=== PATIENT | male | born 1965 | race Caucasian/White ===

== ENCOUNTER → 2017-04-04 14:52 | Outpatient (CLI) | payer OTHER, SELFPAY ==
[2017-04-04 15:17] LABS: Absolute Lymphocyte Count 1.97 X10^3/ul (0.83-4.51); Absolute Neutrophil Count 4.5 X10^3/uL (2.0-7.7); Basophil# 0.01 X10^3/uL; Basophil% 0.1 % (0-1); Eosinophil# 0.03 X10^3/uL; Eosinophils% 0.4 % (0-5); Hematocrit 48.1 % (40-54); Hemoglobin 16.8 g/dl (13.0-16.5); Lymphocyte # 1.97 X10^3/ul (4.0); Lymphocyte % 27.4 % (19-41); Mean Corp Hgb Conc 34.9 g/gl (32-36); Mean Corpuscular Hgb 31.7 pg (27.0-32.0); Mean Corpuscular Volume 90.8 fL (80-94); Mean Platelet Vol. 10.4 fl (6.2-12.0); Monocyte# 0.65 X10^3/uL; Neutrophil # 4.52 X10^3/uL (2.7-7.7); Platelet Count 259 K/mm3 (150-450); RBC Distribution Width CV 12.5 % (11.6-14.6); RBC Distribution Width SD 41.3 fl (35.1-43.9); White Blood Count 7.2 K/mm3 (4.4-11.0)
[2017-04-04 15:42] LABS: POSITIVE COUNT NO; POSITIVE DIFFERENTIAL NO; POSITIVE MORPHOLOGY NO
[2017-04-04 15:49] LABS: ALB/GLOB Ratio 1.1 RATIO (0.9-2.4); AST(SGOT) 36 U/L (15-37); Alanine Aminotransfer ALT/SGPT 71 U/L (16-61); Albumin, Serum 4.1 g/dL (3.2-5.0); Alkaline Phosphatase 67 U/L (45-117); Anion Gap 7 (5-15); BUN 15 mg/dL (7-18); BUN/Creat Ratio 15.3 RATIO (10-20); Chloride 104 mmol/L (98-107); Creatinine, Serum 0.98 mg/dL (0.70-1.30); EST Glomerular Filtration Rate 86 mL/min (>60); Est Glom Filt Rate - Afr Amer 104 mL/min (>60); Globulin 3.6 g/dL (2.2-4.2); Glucose 95 mg/dL (74-106); Protein, Total 7.7 g/dL (6.4-8.2); Sodium Level 139 mmol/L (136-145)
== END ==
PROVIDERS: Family Provider Internal Medicine; PCP Internal Medicine; Visit Provider Internal Medicine
DX: E83.52 Hypercalcemia (principal); I10 Essential (primary) hypertension
CPT/HCPCS: 36415; 80053; 85025

== ENCOUNTER → 2017-04-20 09:18 | Outpatient (CLI) | payer OTHER, SELFPAY ==
[2017-04-20 10:54] LABS: BUN 13 mg/dL (7-18); Creatinine, Serum 0.98 mg/dL (0.70-1.30); Glucose 107 mg/dL (74-106)
[2017-04-20 10:55] LABS: Anion Gap 7 (5-15); BUN/Creat Ratio 13.2 RATIO (10-20); Calcium,Total 9.4 mg/dL (8.5-10.1); Chloride 104 mmol/L (98-107); EST Glomerular Filtration Rate 86 mL/min (>60); Est Glom Filt Rate - Afr Amer 104 mL/min (>60); Magnesium 2.3 mg/dL (1.6-2.6); Sodium Level 140 mmol/L (136-145)
== END ==
PROVIDERS: Family Provider Internal Medicine; PCP Internal Medicine; Visit Provider Internal Medicine
DX: I10 Essential (primary) hypertension (principal); E87.6 Hypokalemia; E78.2 Mixed hyperlipidemia; D72.819 Decreased white blood cell count, unspecified; E55.9 Vitamin D deficiency, unspecified
CPT/HCPCS: 36415; 80048; 83735

== ENCOUNTER → 2017-07-27 08:13 | Outpatient (CLI) | payer OTHER, SELFPAY ==
[2017-07-27 08:29] LABS: Bacteria 0 SEEN /hpf (None Seen); Mucous, Urine 0 SEEN /hpf (<or=2+); Red Blood Cells-Urine 0 SEEN /hpf (0-5); Squamous Epithelial Cells - UA 0 SEEN /hpf (0-5); White Blood Cells 0 SEEN /hpf (0-5)
[2017-07-27 08:45] LABS: Color, Urine Straw (Yellow); Glucose, Dipstick Normal (Normal); Ketone-Dipstick Negative (Negative); Leukocyte Esterase-Dipstick Negative /ul (Negative); Nitrite-Dipstick Negative (Negative); Occult Blood-Urine Negative /ul (Negative); Protein-Dipstick Negative (Negative); Urine Bilirubin Dipstick Negative (Negative); Urine Clarity Clear (Clear); Urine Urobilinogen Normal (Normal)
[2017-07-27 09:09] LABS: Protein, Urine (Random) < 6.0 mg/dL (<11.9)
[2017-07-27 09:11] LABS: Absolute Lymphocyte Count 1.86 X10^3/ul (0.83-4.51); Absolute Neutrophil Count 2.4 X10^3/uL (2.0-7.7); Basophil# 0.01 X10^3/uL; Basophil% 0.2 % (0-1); Eosinophil# 0.04 X10^3/uL; Eosinophils% 0.8 % (0-5); Hematocrit 47.1 % (40-54); Lymphocyte # 1.86 X10^3/ul (4.0); Lymphocyte % 38.8 % (19-41); Mean Corp Hgb Conc 36.1 g/gl (32-36); Mean Corpuscular Hgb 32.4 pg (27.0-32.0); Mean Corpuscular Volume 89.9 fL (80-94); Mean Platelet Vol. 10.8 fl (6.2-12.0); Monocyte# 0.48 X10^3/uL; Neutrophil % 50.2 % (47-70); Platelet Count 266 K/mm3 (150-450); RBC Distribution Width CV 12.6 % (11.6-14.6); RBC Distribution Width SD 41.5 fl (35.1-43.9); Red Blood Count 5.24 M/mm3 (4.6-6.2); White Blood Count 4.8 K/mm3 (4.4-11.0)
[2017-07-27 09:16] LABS: POSITIVE COUNT NO; POSITIVE DIFFERENTIAL NO; POSITIVE MORPHOLOGY NO
[2017-07-27 09:34] LABS: ALB/GLOB Ratio 1.1 RATIO (0.9-2.4); AST(SGOT) 28 U/L (15-37); Alanine Aminotransfer ALT/SGPT 48 U/L (16-61); Albumin, Serum 3.9 g/dL (3.2-5.0); Alkaline Phosphatase 66 U/L (45-117); Anion Gap 8 (5-15); BUN 12 mg/dL (7-18); BUN/Creat Ratio 12.6 RATIO (10-20); Chloride 106 mmol/L (98-107); Cholesterol 190 mg/dL (200); Creatinine, Serum 0.95 mg/dL (0.70-1.30); EST Glomerular Filtration Rate 89 mL/min (>60); Est Glom Filt Rate - Afr Amer 108 mL/min (>60); Globulin 3.5 g/dL (2.2-4.2); Glucose 97 mg/dL (74-106); High Density Lipoprotein 29 mg/dL; Magnesium 2.1 mg/dL (1.6-2.6); Phosphorus 2.4 mg/dL (2.5-4.9); Potassium 4.3 mmol/L (3.5-5.1); Protein, Total 7.4 g/dL (6.4-8.2); Sodium Level 140 mmol/L (136-145); Triglycerides 264 mg/dL; Very Low Density Lipoprotein 53 mg/dL (5-40)
[2017-07-28 08:22] LABS: PTHIN 42.7 pg/mL (18.4-80.1)
[2017-07-28 08:25] LABS: Vitamin D,25 Hydroxy 34.2 ng/mL (29.95-100.01)
[2017-07-29 12:07] LABS: CHOLESTEROL TOTAL 203 mg/dL (100-199); HDL-C 30 mg/dL (>39); HDL-P TOTAL 26.3 umol/L (>=30.5); SMALL LDL-P 1078 nmol/L (<=527); TRIGLYCERIDES 265 mg/dL (0-149)
[2017-07-30 10:26] LABS: LDL-C 120 mg/dL (0-99); LDL-P 1575 nmol/L (<1000); LP-IR SCORE ** 74 (<=45)
== END ==
PROVIDERS: Family Provider Internal Medicine; PCP Internal Medicine; Visit Provider Internal Medicine
DX: E55.9 Vitamin D deficiency, unspecified (principal); E78.2 Mixed hyperlipidemia; D72.819 Decreased white blood cell count, unspecified; E87.6 Hypokalemia; I10 Essential (primary) hypertension; E21.0 Primary hyperparathyroidism
CPT/HCPCS: 36415; 80053; 80061; 81001; 82306; 82570; 83704; 83735; 83970; 84100; 84156; 85025

== ENCOUNTER → 2018-01-03 08:22 | Outpatient (CLI) | payer OTHER, SELFPAY ==
[2018-01-03 10:01] LABS: AST(SGOT) 24 U/L (15-37); Alanine Aminotransfer ALT/SGPT 45 U/L (16-61); Albumin, Serum 3.9 g/dL (3.2-5.0); Alkaline Phosphatase 65 U/L (45-117); Bilirubin, Direct 0.19 mg/dL (0.00-0.30); Cholesterol 174 mg/dL (200); Globulin 3.6 g/dL (2.2-4.2); High Density Lipoprotein 33 mg/dL; Protein, Total 7.5 g/dL (6.4-8.2); Triglycerides 219 mg/dL; Very Low Density Lipoprotein 44 mg/dL (5-40)
[2018-01-06 12:06] LABS: CHOLESTEROL TOTAL 191 mg/dL (100-199); HDL-C 35 mg/dL (>39); HDL-P TOTAL 30.3 umol/L (>=30.5); SMALL LDL-P 709 nmol/L (<=527); TRIGLYCERIDES 216 mg/dL (0-149)
[2018-01-08 15:51] LABS: LDL SIZE 20.3 nm (>20.5); LDL-C 113 mg/dL (0-99); LDL-P 1276 nmol/L (<1000); LP-IR SCORE ** 89 (<=45)
== END ==
PROVIDERS: Family Provider Internal Medicine; PCP Internal Medicine; Referring Provider Internal Medicine; Visit Provider Internal Medicine
DX: E78.2 Mixed hyperlipidemia (principal)
CPT/HCPCS: 36415; 80061; 80076; 83704

== ENCOUNTER → 2018-07-20 08:36 | Outpatient (CLI) | payer OTHER, SELFPAY ==
[2018-07-20 08:43] LABS: Bacteria 0 SEEN /hpf (None Seen); Mucous, Urine 0 SEEN /hpf (<or=2+); Red Blood Cells-Urine 0 SEEN /hpf (0-5); Squamous Epithelial Cells - UA 0 SEEN /hpf (0-5); White Blood Cells 0 SEEN /hpf (0-5)
[2018-07-20 08:57] LABS: Absolute Lymphocyte Count 2.41 X10^3/ul (0.83-4.51); Absolute Neutrophil Count 3.1 X10^3/uL (2.0-7.7); Basophil# 0.02 X10^3/uL; Basophil% 0.3 % (0-1); Eosinophil# 0.09 X10^3/uL; Eosinophils% 1.5 % (0-5); Hematocrit 47.3 % (40-54); Lymphocyte # 2.41 X10^3/ul (4.0); Lymphocyte % 39.6 % (19-41); Mean Corp Hgb Conc 35.9 g/gl (32-36); Mean Corpuscular Hgb 32.3 pg (27.0-32.0); Mean Corpuscular Volume 89.8 fL (80-94); Mean Platelet Vol. 9.8 fl (6.2-12.0); Monocyte# 0.52 X10^3/uL; Monocyte% 8.5 % (0-10); Neutrophil # 3.05 X10^3/uL (2.7-7.7); Neutrophil % 50.1 % (47-70); POSITIVE COUNT NO; POSITIVE DIFFERENTIAL NO; POSITIVE MORPHOLOGY NO; Platelet Count 245 K/mm3 (150-450); RBC Distribution Width CV 12.9 % (11.6-14.6); RBC Distribution Width SD 42.2 fl (35.1-43.9); Red Blood Count 5.27 M/mm3 (4.6-6.2); White Blood Count 6.1 K/mm3 (4.4-11.0)
[2018-07-20 09:27] LABS: Hemoglobin A1c 5.5 % (4.2-6.3)
[2018-07-20 09:44] LABS: Vitamin D,25 Hydroxy 46.8 ng/mL (29.95-100.01)
[2018-07-20 09:46] LABS: AST(SGOT) 25 U/L (15-37); Alanine Aminotransfer ALT/SGPT 31 U/L (16-61); Albumin, Serum 3.6 g/dL (3.2-5.0); Alkaline Phosphatase 56 U/L (45-117); Anion Gap 4 (5-15); BUN 11 mg/dL (7-18); Calcium,Total 8.7 mg/dL (8.5-10.1); Chloride 108 mmol/L (98-107); EST Glomerular Filtration Rate 84 mL/min (>60); Est Glom Filt Rate - Afr Amer 101 mL/min (>60); Globulin 3.5 g/dL (2.2-4.2); Glucose 100 mg/dL (74-106); Potassium 4.1 mmol/L (3.5-5.1); Protein, Total 7.1 g/dL (6.4-8.2); Sodium Level 138 mmol/L (136-145); Thyroid Stim Hormone (TSH) 2.13 uIU/mL (0.358-3.74)
[2018-07-20 10:19] LABS: Microalbumin,Random Urine 5.8 mg/L (NO RANGE EST.); Microalbumin:Creatinine Ratio 8.3 mg/g CRE (<30 mg/g CRE)
[2018-07-20 10:36] LABS: Color, Urine Yellow (Yellow); Glucose, Dipstick Normal (Normal); Ketone-Dipstick Negative (Negative); Leukocyte Esterase-Dipstick Negative /ul (Negative); Nitrite-Dipstick Negative (Negative); Occult Blood-Urine Negative /ul (Negative); Protein-Dipstick Negative (Negative); Urine Bilirubin Dipstick Negative (Negative); Urine Clarity Clear (Clear); Urine Urobilinogen Normal (Normal); Urine pH 6.5 (5.0 - 8.0)
[2018-07-21 16:07] LABS: CHOLESTEROL TOTAL 210 mg/dL (100-199); HDL-C 28 mg/dL (>39); SMALL LDL-P 1843 nmol/L (<=527); TRIGLYCERIDES 372 mg/dL (0-149)
[2018-07-23 08:49] LABS: INSULIN RESISTANCE SCORE 79 (<=45); LDL SIZE 19.4 nm (>20.5); LDL-C 108 mg/dL (0-99); LDL-P 2076 nmol/L (<1000)
== END ==
PROVIDERS: Family Provider Internal Medicine; PCP Internal Medicine; Referring Provider Internal Medicine; Visit Provider Internal Medicine
DX: I10 Essential (primary) hypertension (principal); E78.2 Mixed hyperlipidemia; E88.81 Metabolic syndrome and other insulin resistance; E55.9 Vitamin D deficiency, unspecified
CPT/HCPCS: 36415; 80053; 80061; 81001; 82043; 82306; 82570; 83036; 83704; 84443; 85025

== ENCOUNTER → 2018-09-06 13:46 | Outpatient (CLI) | payer OTHER, SELFPAY ==
--- NOTE | 2018-09-06 13:51 | RAD_ITS ---
STUDY: X-RAY - RIGHT FOOT CLINICAL: Male, 52 years old. Fifth metatarsal pain TECHNIQUE: 3 view(s) of the foot. COMPARISON: None. FINDINGS: Normal talus, calcaneus, and tarsal bones. Normal visualized subtalar, talonavicular, calcaneocuboid, tarsal and tarsometatarsal articulations. Normal metatarsi. Normal metatarsophalangeal joint of the great toe. Normal tibial and fibular sesamoid bones. Normal interphalangeal joint of the great toe. Normal phalanges of the great toe. Normal second through fifth metatarsophalangeal joints. Normal interphalangeal joints and phalanges of the lesser toes. The soft tissue structures are unremarkable. RAD/Foot min 3 Views IMPRESSION: Normal x-ray examination of the foot. Electronically Signed: Mj Bradley MD at 14:54 EDT , Service support ,
== END ==
PROVIDERS: Family Provider Internal Medicine; PCP Internal Medicine; Referring Provider Internal Medicine; Visit Provider Internal Medicine
DX: M79.671 Pain in right foot (principal)
CPT/HCPCS: 73630

== ENCOUNTER → 2019-01-28 10:10 | Outpatient (CLI) | payer OTHER, SELFPAY ==
[2019-01-28 10:15] LABS: Bacteria 0 SEEN /hpf (None Seen); Mucous, Urine 0 SEEN /hpf (<or=2+); Red Blood Cells-Urine 0 SEEN /hpf (0-5); Squamous Epithelial Cells - UA 0 SEEN /hpf (0-5); White Blood Cells 0 SEEN /hpf (0-5)
[2019-01-28 11:16] LABS: Absolute Lymphocyte Count 2.09 X10^3/uL (0.83-4.51); Absolute Neutrophil Count 3.1 X10^3/uL (2.0-7.7); Basophil# 0.04 X10^3/uL; Basophil% 0.7 % (0-1); Color, Urine Straw (Yellow); Eosinophil# 0.09 X10^3/uL; Eosinophils% 1.5 % (0-5); Glucose, Dipstick Normal (Normal); Hematocrit 47.8 % (40-54); Hemoglobin 16.7 g/dL (13.0-16.5); Ketone-Dipstick Negative (Negative); Leukocyte Esterase-Dipstick Negative /ul (Negative); Lymphocyte # 2.09 X10^3/ul (4.0); Lymphocyte % 34.5 % (19-41); Mean Corp Hgb Conc 34.9 g/dL (32-36); Mean Corpuscular Volume 91.6 fL (80-94); Mean Platelet Vol. 10.4 fl (6.2-12.0); Monocyte# 0.66 X10^3/uL; Monocyte% 10.9 % (0-10); NRBC Flagged by Analyzer 0 % (0-5); Neutrophil # 3.14 X10^3/uL (2.7-7.7); Neutrophil % 51.9 % (47-70); Nitrite-Dipstick Negative (Negative); Occult Blood-Urine Negative /ul (Negative); Platelet Count 292 K/mm3 (150-450); Protein-Dipstick Negative (Negative); RBC Distribution Width CV 12.2 % (11.6-14.6); Red Blood Count 5.22 M/mm3 (4.6-6.2); Specific Gravity, Urine 1.005 (1.002-1.030); Urine Bilirubin Dipstick Negative (Negative); Urine Clarity Clear (Clear); Urine Urobilinogen Normal (Normal); White Blood Count 6.1 K/mm3 (4.4-11.0)
[2019-01-28 11:30] LABS: Microalbumin,Random Urine < 5.0 mg/L (NO RANGE EST.)
[2019-01-28 12:11] LABS: ALB/GLOB Ratio 1.1 RATIO (0.9-2.4); AST(SGOT) 19 U/L (15-37); Alanine Aminotransfer ALT/SGPT 32 U/L (16-61); Albumin, Serum 3.7 g/dL (3.2-5.0); Alkaline Phosphatase 51 U/L (45-117); Anion Gap 4 (5-15); BUN 9 mg/dL (7-18); BUN/Creat Ratio 9.1 RATIO (10-20); Calcium,Total 8.8 mg/dL (8.5-10.1); Chloride 105 mmol/L (98-107); Creatinine, Serum 0.99 mg/dL (0.70-1.30); EST Glomerular Filtration Rate 84 mL/min (>60); Est Glom Filt Rate - Afr Amer 102 mL/min (>60); Globulin 3.4 g/dL (2.2-4.2); Glucose 89 mg/dL (74-106); Potassium 3.6 mmol/L (3.5-5.1); Protein, Total 7.1 g/dL (6.4-8.2); Sodium Level 140 mmol/L (136-145); Thyroid Stim Hormone (TSH) 1.87 uIU/mL (0.358-3.74)
[2019-01-30 16:23] LABS: CHOLESTEROL TOTAL 187 mg/dL (100-199); HDL-C 27 mg/dL (>39); HDL-P TOTAL 25.5 umol/L (>=30.5); SMALL LDL-P 1361 nmol/L (<=527); TRIGLYCERIDES 306 mg/dL (0-149)
[2019-01-30 16:52] LABS: INSULIN RESISTANCE SCORE 91 (<=45); LDL SIZE 19.6 nm (>20.5); LDL-C 99 mg/dL (0-99); LDL-P 1633 nmol/L (<1000)
== END ==
PROVIDERS: Family Provider Internal Medicine; PCP Internal Medicine; Referring Provider Internal Medicine; Visit Provider Internal Medicine
DX: E78.2 Mixed hyperlipidemia (principal); I10 Essential (primary) hypertension
CPT/HCPCS: 36415; 80053; 80061; 81001; 82043; 82570; 83704; 84443; 85025

== ENCOUNTER 2019-04-23 07:01 | Emergency (ER) | payer OTHER, SELFPAY ==
[2019-04-23 07:02] VITALS: BP 161/112; PULSE 90; RESP 16; TEMP 36.9; O2SAT 97; BMI 28.0
--- NOTE | 2019-04-23 07:12 | CT_ITS ---
STUDY: CT ABDOMEN AND PELVIS WITHOUT CONTRAST REASON FOR EXAM: Male, 53 years old patient with right-sided flank pain. RADIATION DOSAGE (If Supplied By Facility): CTDIvol = ( 7.09 ) mGy, DLP = ( 368.34 ) mGycm TECHNIQUE: Transaxial images were obtained from the dome of the diaphragm to the symphysis pubis without oral contrast, and without intravenous contrast. Sagittal and coronal images were reconstructed. Individualized dose optimization techniques were used for this CT. COMPARISON: CT abdomen and pelvis dated October 29 2014. FINDINGS: The visualized lung bases are unremarkable. The visualized portions of the heart are within normal limits. Normal liver. Normal gallbladder and extrahepatic biliary system. Normal spleen. Normal pancreas. Normal bilateral adrenal glands. There is mild right-sided hydronephrosis and hydroureter secondary to 2 distal ureteral calculi with the largest measuring 4 mm in greatest dimension. Normal left kidney. Normal visualized stomach. There is no evidence for dilated bowel, ascites or pneumoperitoneum. The small bowel has a grossly normal appearance. The descending colon is not distended. It the transverse colon appears to have some abnormal thickening of the christine which may be the result of a previous inflammation. Stool is visible throughout the right colon. There are scattered colonic diverticula. There is non-visualization of the appendix. Normal abdominal aorta. There is venous distention of the inferior vena cava (IVC). Normal retroperitoneum. Urinary bladder is not distended. There are prostatic calcifications. There is a small umbilical hernia containing fat. Normal osseous structures. CT/Abdomen/Pelvis without Cont IMPRESSION: 1. Moderate right-sided hydronephrosis and hydroureter secondary to distal ureteral calculi. 2. Colonic diverticulosis. Electronically Signed: Stacia Dover MD at 8:04 EDT , Service support ,
--- NOTE | 2019-04-23 07:12 | ED.VIS.GEN ---
History of Present Illness Chief Complaint: Flank Pain Informant: Patient Onset: Today Narrative: Patient states that approximately 0400 hours today he was awoken from his sleep with a right flank aching. It progressed to severe pain wrapping anteriorly to discomfort including his penis. He did develop some diarrhea as well as significant nausea. He has not been ill recently. He has a history of hyperparathyroidism. He has had a parathyroidectomy. He states that despite that and medicationS he remains with hypercalcemia. Recent bone study showed osteoporosis. He has a history of kidney stones though it has been several years. He last had surgery with Dr. Grover. Past Medical History - Allergies and Home Meds Allergies/Adverse Reactions: Allergies ciprofloxacin [From Cipro] Allergy (Verified 04/23/19 07:04) Other Iodinated Contrast Media [Iodinated Contrast Media - IV Dye] Allergy (Verified 04/23/19 07:04) Unknown levofloxacin [From Levaquin] Allergy (Verified 04/23/19 07:04) Unknown codeine Adverse Reaction (Verified 04/23/19 07:04) Vomiting doxycycline calcium [From Vibramycin] Adverse Reaction (Verified 04/23/19 07:04) Other doxycycline hyclate [From Vibramycin] Adverse Reaction (Verified 04/23/19 07:04) Other doxycycline monohydrate [From Vibramycin] Adverse Reaction (Verified 04/23/19 07:04) Other hydrocodone Adverse Reaction (Verified 04/23/19 07:04) Vomiting ketorolac tromethamine [From Toradol] Adverse Reaction (Verified 04/23/19 07:04) Unknown Primary Care Physician: Dl Grover MD [STAFF PHYSICIAN] - As soon as possible Smoking Status: Never smoker Review of Systems General: Denies: Chills, Fever, Sweats Eyes: Denies: Visual changes - bilaterally, Diplopia ENT: Denies: Rhinorrhea, Sore throat Cardiovascular: Denies: Chest pain, Palpitations Respiratory: Denies: Dyspnea, Cough, Dyspnea on exertion Gastrointestinal: Reports: Abdominal pain, Nausea, Diarrhea. Denies: Vomiting, Melena, Hematochezia Genitourinary: Reports: - - Penile pain and right flank pain. Denies: Dysuria, Hematuria, Frequency Musculoskeletal: Denies: Back pain, Extremity Pain Skin: Denies: Rash, Wounds Neurological: Denies: Headache, Weakness, Numbness Physical Exam Vital Signs/Narrative: Vital Signs Temp Pulse Resp BP Pulse Ox 04/23/19 07:02 98.4 F 90 16 161/112 H 97 Inital Vital Signs reviewed: Yes General: Well nourished, Well developed, - - Patient appears very uncomfortable with pain in the bed. Head: Normocephalic, Atraumatic Eyes: Perrl, EOMI ENT: Moist mucous membranes, No rhinorrhea Neck: Supple, Nontender Cardiovascular: Regular rate, Regular rhythm, No murmurs Respiratory: No distress, CTA bilaterally, Chest nontender Abdomen: Soft, Nontender, Nondistended, Normal bowel sounds Back: Normal Inspection, CVA tenderness Extremities: Nontender, No edema Skin: Normal color, No rash Neurological: Alert, Oriented x3, Cranial nerves II-XII grossly intact, Normal Strength, Normal Sensation Psychological: Normal affect, Normal Mood Diagnostic/Tx/Re-eval - Medical Decision Making CBC and BMP were normal. Urinalysis negative for gross hematuria or infection. CT the abdomen pelvis demonstrates ureteral stones in the distal ureter on the right with associated hydronephroureter. Patient initially received morphine and Zofran and fluids. Later he received additional morphine and Ativan. Patient's pain was improved. He did require additional Dilaudid and Zofran. Case was discussed with urology. Will return if worsening follow-up with Dr. Uriarte. Prescriptions for Flomax, Percocet, and Zofran were given. ED Disposition - Plan for ED Patient: Disposition: Home or Assisted Living Diagnosis: Calcium ureterolithiasis, Renal colic on right side, Hydronephrosis with obstructing calculus Instructions: KIDNEY STONE w/ Colic Prescriptions: Tamsulosin HCl [Flomax] 0.4 mg PO DAILY #7 cap Prescription Printed Oxycodone HCl/Acetaminophen [Percocet 5/325] 1 tab PO Q6H PRN PRN 3 Days #12 tab PRN Reason: Pain Prescription Printed Ondansetron [Zofran Odt] 4 mg PO Q6H PRN PRN #20 tab PRN Reason: Nausea Prescription Printed Referrals: Sujatha Uriarte MD [STAFF PHYSICIAN] - As soon as possible
[2019-04-23 07:19] LABS: Absolute Lymphocyte Count 2.44 X10^3/uL (0.83-4.51); Absolute Neutrophil Count 3.1 X10^3/uL (2.0-7.7); Basophil# 0.03 X10^3/uL; Basophil% 0.5 % (0-1); Eosinophil# 0.05 X10^3/uL; Eosinophils% 0.8 % (0-5); Hematocrit 52.3 % (40-54); Lymphocyte # 2.44 X10^3/ul (4.0); Lymphocyte % 38.7 % (19-41); Mean Corpuscular Hgb 31.2 pg (27.0-32.0); Mean Corpuscular Volume 89.1 fL (80-94); Mean Platelet Vol. 10.3 fl (6.2-12.0); Monocyte# 0.65 X10^3/uL; Monocyte% 10.3 % (0-10); NRBC Flagged by Analyzer 0 % (0-5); Neutrophil # 3.12 X10^3/uL (2.7-7.7); Neutrophil % 49.5 % (47-70); Platelet Count 305 K/mm3 (150-450); RBC Distribution Width CV 12.1 % (11.6-14.6); RBC Distribution Width SD 39.6 fl (35.1-43.9); Red Blood Count 5.87 M/mm3 (4.6-6.2); White Blood Count 6.3 K/mm3 (4.4-11.0)
[2019-04-23 07:22] LABS: Hemoglobin 18.3 g/dL (13.0-16.5)
[2019-04-23] MEDS: Morphine 4 MG/ML Syringe IV ×2 (07:26→08:20)
[2019-04-23] MEDS: 0.9% Normal Saline 1,000 ML 250 ML IV (07:26)
[2019-04-23] MEDS: Ondansetron 4 MG/2 ML Vial IV ×2 (07:26→13:06)
[2019-04-23 07:32] LABS: Anion Gap 7 (5-15); BUN 15 mg/dL (7-18); BUN/Creat Ratio 11.8 RATIO (10-20); Calcium,Total 9.2 mg/dL (8.5-10.1); Chloride 103 mmol/L (98-107); Creatinine, Serum 1.27 mg/dL (0.70-1.30); EST Glomerular Filtration Rate 63 mL/min (>60); Est Glom Filt Rate - Afr Amer 77 mL/min (>60); Estimated Creatinine Clearance 64.34 ml/min; Glucose 105 mg/dL (74-106); Potassium 3.5 mmol/L (3.5-5.1); Sodium Level 138 mmol/L (136-145)
[2019-04-23 07:34] LABS: White Blood Cells 0 SEEN /hpf (0-5)
[2019-04-23 07:35] LABS: Color, Urine Yellow (Yellow); Glucose, Dipstick Normal (Normal); Ketone-Dipstick Negative (Negative); Leukocyte Esterase-Dipstick 25 /ul (Negative); Nitrite-Dipstick Negative (Negative); Occult Blood-Urine 150 /ul (Negative); Protein-Dipstick 15 mg/dl (Negative); Urine Bilirubin Dipstick Negative (Negative); Urine Clarity Sl. Cloudy (Clear); Urine Urobilinogen Normal (Normal); Urine pH 6.5 (5.0 - 8.0)
[2019-04-23 07:44] LABS: Bacteria RARE /hpf (None Seen); Red Blood Cells-Urine 0-5 SEEN /hpf (0-5); Squamous Epithelial Cells - UA 0-5 SEEN /hpf (0-5)
[2019-04-23 07:45] LABS: Calcium Oxalate Crystals Ur 2+ /hpf (<or=2+); Mucous, Urine RARE /hpf (<or=2+)
[2019-04-23] MEDS: LORazepam 2 MG/ML Syringe 1 MG IV (08:20)
[2019-04-23] MEDS: HYDROmorphone 1 MG/ML Syringe IV (09:53)
[2019-04-23 10:26] VITALS: BP 156/100; PULSE 92; RESP 20; O2SAT 97
[2019-04-23 11:43] VITALS: BP 151/98; PULSE 82; RESP 18; O2SAT 92
[2019-04-23 13:07] VITALS: RESP 16
== END 2019-04-23 13:11 | disposition home or self-care (01) ==
PROVIDERS: Emergency Provider Emergency Medicine; PCP Internal Medicine
DX: N13.2 Hydronephrosis with renal and ureteral calculous obstruction (principal); E89.2 Postprocedural hypoparathyroidism; M81.0 Age-related osteoporosis without current pathological fracture; Z87.442 Personal history of urinary calculi
CPT/HCPCS: 74176; 80048; 81001; 85025; 96361; 96374; 96375; 96376; 99283; J7030; A4216; J2405

== ENCOUNTER → 2019-05-13 09:18 | Outpatient (CLI) | payer OTHER, SELFPAY ==
[2019-04-23 07:02] VITALS: BMI 28.0
--- NOTE | 2019-05-13 09:30 | RAD_ITS ---
STUDY: X-RAY - ABDOMEN/PELVIS REASON FOR EXAM: Male, 53 years old. Kidney stone TECHNIQUE: Single AP view of the abdomen / pelvis. COMPARISON: Comparison is made with prior study November 20, 2014. FINDINGS: Normal visualized lung bases. There is an abundance of fecal material throughout the colon. The visualized liver, spleen and kidneys are grossly normal in size and morphology. There are calcified phleboliths in the pelvis. Normal visualized osseous structures. RAD/Abdomen Single View IMPRESSION: Large amount of fecal material is seen in the colon Electronically Signed: Tray Cifuentes, at 10:27 EDT , Service support ,
== END ==
PROVIDERS: PCP Internal Medicine; Referring Provider Nurse Practitioner Adult Health; Visit Provider Nurse Practitioner Adult Health
DX: N20.1 Calculus of ureter (principal)
CPT/HCPCS: 74018

== ENCOUNTER → 2019-07-24 06:42 | Outpatient (CLI) | payer OTHER, SELFPAY ==
[2019-07-24 06:48] LABS: Bacteria 0 SEEN /hpf (None Seen); Mucous, Urine 0 SEEN /hpf (<or=2+); Red Blood Cells-Urine 0 SEEN /hpf (0-5); Squamous Epithelial Cells - UA 0 SEEN /hpf (0-5); White Blood Cells 0 SEEN /hpf (0-5)
[2019-07-24 07:13] LABS: Absolute Lymphocyte Count 1.96 X10^3/uL (0.83-4.51); Absolute Neutrophil Count 3.5 X10^3/uL (2.0-7.7); Basophil# 0.04 X10^3/uL; Basophil% 0.6 % (0-1); Eosinophil# 0.08 X10^3/uL; Eosinophils% 1.3 % (0-5); Hematocrit 49.9 % (40-54); Hemoglobin 17.4 g/dL (13.0-16.5); Lymphocyte # 1.96 X10^3/ul (4.0); Lymphocyte % 31.8 % (19-41); Mean Corp Hgb Conc 34.9 g/dL (32-36); Mean Corpuscular Hgb 32.4 pg (27.0-32.0); Mean Corpuscular Volume 92.9 fL (80-94); Mean Platelet Vol. 10.3 fl (6.2-12.0); Monocyte# 0.59 X10^3/uL; Monocyte% 9.6 % (0-10); NRBC Flagged by Analyzer 0 % (0-5); Neutrophil # 3.47 X10^3/uL (2.7-7.7); Neutrophil % 56.4 % (47-70); Platelet Count 295 K/mm3 (150-450); RBC Distribution Width CV 12.9 % (11.6-14.6); RBC Distribution Width SD 43.6 fl (35.1-43.9); Red Blood Count 5.37 M/mm3 (4.6-6.2); White Blood Count 6.2 K/mm3 (4.4-11.0)
[2019-07-24 07:14] LABS: Color, Urine Yellow (Yellow); Glucose, Dipstick Normal (Normal); Ketone-Dipstick Negative (Negative); Leukocyte Esterase-Dipstick Negative /ul (Negative); Nitrite-Dipstick Negative (Negative); Occult Blood-Urine Negative /ul (Negative); Protein-Dipstick Negative (Negative); Specific Gravity, Urine 1.005 (1.002-1.030); Urine Bilirubin Dipstick Negative (Negative); Urine Clarity Clear (Clear); Urine Urobilinogen Normal (Normal)
[2019-07-24 07:42] LABS: ALB/GLOB Ratio 1.1 RATIO (0.9-2.4); AST(SGOT) 20 U/L (15-37); Alanine Aminotransfer ALT/SGPT 37 U/L (16-61); Alkaline Phosphatase 54 U/L (45-117); Anion Gap 6 (5-15); BUN 15 mg/dL (7-18); BUN/Creat Ratio 14.7 RATIO (10-20); Calcium,Total 9.1 mg/dL (8.5-10.1); Chloride 103 mmol/L (98-107); Cholesterol 213 mg/dL (200); Creatinine, Serum 1.02 mg/dL (0.70-1.30); EST Glomerular Filtration Rate 82 mL/min (>60); Est Glom Filt Rate - Afr Amer 99 mL/min (>60); Globulin 3.8 g/dL (2.2-4.2); Glucose 93 mg/dL (74-106); High Density Lipoprotein 30 mg/dL; PSA,Total - Annual Screen 1.64 ng/mL (0.00-4.00); Potassium 3.7 mmol/L (3.5-5.1); Protein, Total 7.8 g/dL (6.4-8.2); Sodium Level 139 mmol/L (136-145); Thyroid Stim Hormone (TSH) 3.28 uIU/mL (0.358-3.74); Triglycerides 397 mg/dL; Very Low Density Lipoprotein 79 mg/dL (5-40)
[2019-07-24 07:46] LABS: Microalbumin,Random Urine < 5.0 mg/L (NO RANGE EST.)
[2019-07-24 09:21] LABS: Vitamin D,25 Hydroxy 65.7 ng/mL
[2019-07-30 12:07] LABS: Testosterone, % Free 2.38 % (1.50-4.20); Testosterone, Free 6.33 ng/dL (5.00-21.00)
[2019-07-31 05:21] LABS: AFP, Tumor Marker 2.7 ng/mL (0.0-8.3); Testosterone, Total 266 ng/dL (264-916)
== END ==
PROVIDERS: PCP Internal Medicine; Referring Provider Internal Medicine; Visit Provider Internal Medicine
DX: J02.9 Acute pharyngitis, unspecified (principal); I10 Essential (primary) hypertension; F41.9 Anxiety disorder, unspecified; E34.9 Endocrine disorder, unspecified; K76.0 Fatty (change of) liver, not elsewhere classified; E55.9 Vitamin D deficiency, unspecified; Z12.5 Encounter for screening for malignant neoplasm of prostate; Z51.81 Encounter for therapeutic drug level monitoring
CPT/HCPCS: 36415; 80053; 80061; 81001; 82043; 82105; 82306; 82570; 84153; 84402; 84403; 84443; 85025; G0103

== ENCOUNTER → 2022-02-24 | Outpatient (CLI) | payer OTHER, SELFPAY ==
--- NOTE | 2022-02-24 10:21 | US_ITS ---
STUDY: ABDOMINAL ULTRASOUND REASON FOR EXAM: Male, 56 years old. Muscular pain in the epigastric region. TECHNIQUE: Transabdominal ultrasound was performed with real-time and static peguero scale imaging. TECHNICAL QUALITY: Adequate. COMPARISON: None. FINDINGS: Liver: The liver measures 16.8 cm. There is increased echogenicity consistent with fatty infiltration. The bile ducts are within normal limits. There is hepatic color flow. The direction of portal flow is hepatopetal. There is no demonstrated mass lesion. Portal vein measurement: Gallbladder: Normal distended gallbladder. The gallbladder wall measures 2.0 mm. There is a negative sonographic Oreilly''s sign. There is no pericholecystic fluid. There are no gallstones. Common Bile Duct (C.B.D.): The common bile duct measures 3 mm. Pancreas: Normal size of the head, body and tail of the pancreas. There is increased echogenicity of the pancreas. There is no demonstrated pancreatic mass or cyst. Spleen: Normal size of the spleen. The spleen measures 10 cm x 3.4 cm x 3.2 cm. Right Kidney: Normal size of the right kidney. The right kidney measures 11.5 cm x 6.8 cm x 5.5 cm. Normal renal cortex. The right cortex measures 1.7 cm. There is no demonstrated renal mass or cyst. There is no right hydronephrosis. There is a nonobstructive 9 mm x 8 mm x 10 mm intrarenal calculus. Left Kidney: Normal size of the left kidney. The left kidney measures 12.3 cm x 5.8 cm x 5.8 cm. Normal renal cortex. The left cortex measures 1.7 cm. There is no demonstrated renal mass or cyst. There is no left hydronephrosis. Aorta: Unremarkable I.V.C.: The IVC is patent. There is no ascites. US/Abdomen Complete IMPRESSION: Fatty attrition of the liver. Tiny nonobstructive right intrarenal calculus. Electronically Signed: Tray Cifuentes MD at 14:12 EST ,
== END | disposition home or self-care (01) ==
LOC: US 10:20
PROVIDERS: PCP Internal Medicine; Visit Provider Internal Medicine
DX: N20.0 Calculus of kidney (principal); K76.0 Fatty (change of) liver, not elsewhere classified
CPT/HCPCS: 76700

== ENCOUNTER → 2022-03-07 | Outpatient (CLI) | payer OTHER, SELFPAY ==
--- NOTE | 2022-03-07 15:03 | RAD_ITS ---
EXAM: XR ABDOMEN, 1 VIEW CLINICAL INDICATION: CALC OF KIDNEY TECHNIQUE: Frontal supine view of the abdomen/pelvis. This report was created using [employer] report generation technology. COMPARISON: None. FINDINGS: LOWER THORAX: No acute pathology. GASTROINTESTINAL TRACT: Unremarkable. Non-obstructive. No bowel or stomach distention. ORGANS: Unremarkable as visualized. No organomegaly. No abnormal calcifications. BONES/JOINTS: No acute pathology. SOFT TISSUES: No acute pathology. RAD/Abdomen Single View IMPRESSION: No plain film evidence of visible radiopaque calculi of the kidneys, ureters and urinary bladder. Electronically Signed: Mao Yang MD at 9:09 EST ,
== END | disposition home or self-care (01) ==
LOC: RAD 15:00
PROVIDERS: PCP Internal Medicine; Referring Provider Urology; Visit Provider Urology
DX: N20.0 Calculus of kidney (principal)
CPT/HCPCS: 74018

== ENCOUNTER → 2022-03-15 | Outpatient (CLI) | payer OTHER, SELFPAY | END | disposition home or self-care (01) | LOC: LABSPEC 16:45 | PROVIDERS: PCP Internal Medicine; Visit Provider Urology | DX: N20.0 Calculus of kidney (principal) | CPT/HCPCS: 82360 ==

== ENCOUNTER → 2022-09-24 | Outpatient (CLI) | payer OTHER, SELFPAY ==
--- NOTE | 2022-09-24 07:57 | CT_ITS ---
INDICATION: abdominal wall defect. Bulging of the abdomen after lifting. EXAMINATION: CT ABDOMEN WITHOUT CONTRAST - CT Abdomen W/O Contrast Injection TECHNIQUE: Multiple axial images were obtained of the abdomen without oral or IV contrast. A radiation dose optimization technique was used for this scan. IV Contrast dosage and agent: None. Oral contrast: Readi-CAT RADIATION DOSAGE (If Supplied By Facility): CTDIvol = ( 8.37 ) mGy, DLP = ( 307.15 ) mGycm COMPARISON: Prior study dated: April 23, 2019 FINDINGS: LOWER CHEST: Lung bases are clear. No cardiomegaly or pericardial effusion. The lack of intravenous contrast limits evaluation of solid visceral organs. LIVER: Homogeneous. No focal mass. GALLBLADDER AND BILIARY TREE: No calcified gallstones. No gallbladder distension or wall edema. No intra- or extrahepatic biliary ductal dilation. PANCREAS: No focal cystic or solid mass. SPLEEN: Normal size without focal cystic or solid mass. ADRENAL GLANDS: No nodules. KIDNEYS AND URETERS: Normal renal size and position. There are too small to characterize low-attenuation foci within the left kidney suggestive of underlying cysts. PERITONEUM: No ascites or free air. No other fluid collection. BOWEL: No stomach or bowel distension. There are diverticula arising from the colon. No focal inflammatory change. LYMPH NODES: No enlarged mesenteric or retroperitoneal lymph nodes. VESSELS: Aorta is non-dilated. There are peripheral calcifications of the abdominal aorta. ABDOMINAL WALL: There is a small fat-containing umbilical hernia. BONES: No lytic or blastic abnormality. CT/Abdomen without IV Contrast IMPRESSION: Small fat-containing umbilical hernia. Atherosclerosis. Colonic diverticulosis. Electronically Signed: Fiona Brandt MD at 20:11 EDT ,
== END | disposition home or self-care (01) ==
LOC: CT 07:55
PROVIDERS: PCP Internal Medicine; Referring Provider Internal Medicine; Visit Provider Internal Medicine
DX: K42.9 Umbilical hernia without obstruction or gangrene (principal)
CPT/HCPCS: 74150

== ENCOUNTER → 2024-01-26 | Outpatient (CLI) | payer OTHER, SELFPAY ==
[2024-01-26 10:29] LABS: Absolute Lymphocyte Count 1.91 X10^3/uL (0.83-4.51); Absolute Neutrophil Count 3.8 X10^3/uL (2.0-7.7); Basophil# 0.05 X10^3/uL; Basophil% 0.7 % (0-1); Eosinophil# 0.07 X10^3/uL; Hematocrit 48.6 % (40-54); Hemoglobin 17.2 g/dL (13.0-16.5); Lymphocyte # 1.91 X10^3/ul (0.83-4.51); Lymphocyte % 28.6 % (19-41); Mean Corp Hgb Conc 35.4 g/dL (32-36); Mean Corpuscular Hgb 31.7 pg (27.0-32.0); Mean Corpuscular Volume 89.7 fL (80-94); Mean Platelet Vol. 10.5 fl (6.2-12.0); Monocyte# 0.84 X10^3/uL; Monocyte% 12.6 % (0-10); NRBC Flagged by Analyzer 0 % (0-5); Neutrophil % 56.8 % (47-70); Platelet Count 311 K/mm3 (150-450); RBC Distribution Width CV 12.7 % (11.6-14.6); RBC Distribution Width SD 41.6 fl (35.1-43.9); Red Blood Count 5.42 M/mm3 (4.6-6.2); White Blood Count 6.7 K/mm3 (4.4-11.0)
[2024-01-26 10:41] LABS: CRP 2.94 mg/L (0.0-3.0)
[2024-01-26 10:53] LABS: Erythrocyte Sedimentation Rate 3 mm/hr (0-20)
== END | disposition home or self-care (01) ==
PROVIDERS: PCP Internal Medicine; Referring Provider Nurse Practitioner Family; Visit Provider Nurse Practitioner Family
DX: J22 Unspecified acute lower respiratory infection (principal)
CPT/HCPCS: 85025; 85652; 86140

== ENCOUNTER → 2024-03-08 | Outpatient (CLI) | payer OTHER, SELFPAY ==
--- NOTE | 2024-03-08 18:43 | CT_ITS ---
STUDY: CT PARANASAL SINUSES WITHOUT CONTRAST REASON FOR EXAM: Male, [address] SINUS WO CON, sinusitis chronic or recurrent -- Bacterial sinusitis RADIATION DOSAGE (If Supplied By Facility): CTDIvol = ( 33.06 ) mGy, DLP = ( 846.25 ) mGycm TECHNIQUE: The patient was scanned in a multi-detector CT scanner. High resolution transaxial imaging was performed and coronal images were reconstructed. Individualized dose optimization techniques were used for this CT. COMPARISON: Head CT dated July 15, 2013 FINDINGS: FRONTAL SINUSES: Normal development and aeration of the bilateral frontal sinuses without mucosal inflammatory disease. ETHMOIDAL SINUSES: Normal development and aeration of the bilateral ethmoidal air cells without mucosal inflammatory disease. MAXILLARY SINUSES: Normal development and aeration of the bilateral maxillary antra without mucosal inflammatory disease. SPHENOIDAL SINUSES: Normal aeration of the bilateral sphenoid sinuses and there is no mucosal inflammatory disease. OMU: Normal aeration of the bilateral maxillary infundibulum. Normal uncinate process, ethmoid bulla, and hiatus semilunaris. MIDDLE TURBINATES: Normal bilateral middle turbinates without a evelia bullosa or paradoxical curvature. INFERIOR TURBINATES: Normal bilateral inferior turbinates. NASAL SEPTUM: Slight leftward midline nasal septum deviation with a posterior bony nasal spur on the left. There is no nasal septal mass lesions. Normal anterior cranial fossa, santy neva and cribriform plate. Normal bilateral orbital contents. Normal nasopharynx without adenoidal pad hypertrophy, or a posterior nasopharyngeal retention cyst. There is no demonstrated enhancing soft tissue or osseous abnormality. MASTOID SINUSES: Normal bilateral mastoid air cells which are clear. Normal bilateral inner ear ossicles and tympanic membranes. The external auditory canals are unremarkable. CT/Sinus/Facial Bone IMPRESSION: 1. Slight leftward midline nasal septum deviation with a posterior bony nasal spur on the left. There is no nasal septal mass lesions. Electronically Signed: Richard Boss MD at 15:27 EST Reading Location ID and State: [facility] / [place] , Service support ,
== END | disposition home or self-care (01) ==
LOC: CT 18:43
PROVIDERS: PCP Internal Medicine; Referring Provider Internal Medicine; Visit Provider Internal Medicine
DX: J32.9 Chronic sinusitis, unspecified (principal)
CPT/HCPCS: 70486